=== PATIENT | female | born 1995 | race Caucasian/White ===

== ENCOUNTER 2019-08-04 07:04 | Day surgery (SDC) | payer OTHER ==
[~2019-08-04] VITALS: Ht 152.4 cm; Wt 75.3 kg
[2019-08-04 08:25] VITALS: BP 126/68
[2019-08-04 15:44] VITALS: BP 128/77
== END 2019-08-04 11:35 | disposition home or self-care (01) ==
LOC: DS 07:04 → GI 10:00 → OR 10:00 → DS 11:35
DX: K62.5 Hemorrhage of anus and rectum (principal); K63.89 Other specified diseases of intestine; B96.81 Helicobacter pylori [H. pylori] as the cause of diseases classified elsewhere; J45.909 Unspecified asthma, uncomplicated; Z88.1 Allergy status to other antibiotic agents; Z88.8 Allergy status to other drugs, medicaments and biological substances; Z91.018 Allergy to other foods; Z80.0 Family history of malignant neoplasm of digestive organs; Z79.899 Other long term (current) drug therapy; Z87.440 Personal history of urinary (tract) infections
CPT/HCPCS: 43235; 45378; 87081; J1200; J1610; J2250; J2310; J3010; J3490